=== PATIENT | female | born 1995 | race Asian ===

== ENCOUNTER 2022-05-07 12:20 | Emergency (ER) | payer OTHER ==
[2022-05-07 12:36] VITALS: BP 122/76
--- NOTE | 2022-05-07 14:31 | ED Physician Documentation ---
PD HPI URI - Stated complaint Stated Complaint: FEVER,COUGH - Chief complaint Chief Complaint: Fever - History obtained from History obtained from: Patient - History of Present Illness Timing - onset: How many days ago (3) Timing duration: Days (3) Timing details: Abrupt onset, Still present Associated symptoms: Fever, Chills, Nasal congestion, Swollen nodes, Dry cough. No: NVD Contributing factors: Sick contact (her child initially sick in family, now she is sick as well. got sick a day later than her.) Improves by: No: Medication (tylenol helps with fevers. Not much improvement on cough with OTC meds.) Worsened by: Activity Similar symptoms before: Has not had sx before Recently seen: Not recently seen Review of Systems Constitutional: reports: Fever, Chills Nose: reports: Congestion Throat: reports: Sore throat Respiratory: reports: Cough GI: reports: Nausea. denies: Vomiting, Diarrhea Skin: denies: Rash Neurologic: reports: Generalized weakness, Headache. denies: Altered mental status PD PAST MEDICAL HISTORY - Past Medical History Cardiovascular: None Respiratory: None Endocrine/Autoimmune: None - Present Medications Home Medications: Ambulatory Orders Medication Instructions Recorded Confirmed Benzonatate [Tessalon] 100 mg PO TID PRN #20 cap 05/07/22 Ondansetron Odt [Zofran] 4 mg TL Q6H PRN #10 tablet 05/07/22 - Allergies Allergies/Adverse Reactions: Allergies Allergy/AdvReac Type Severity Reaction Status Date / Time ibuprofen Allergy Itching Verified 05/07/22 12:36 Penicillins Allergy Itching Verified 05/07/22 12:36 PD ED PE NORMAL - Vitals Vital signs reviewed: Yes - General General: Alert and oriented X 3, No acute distress, Well developed/nourished - HEENT HEENT: Ears normal, Moist mucous membranes, Pharynx benign - Neck Neck: Supple, no meningeal sign, No adenopathy - Cardiac Cardiac: RRR, No murmur - Respiratory Respiratory: Clear bilaterally - Derm Derm: Normal color, Warm and dry, No rash - Neuro Neuro: Alert and oriented X 3, No motor deficit, Normal speech Results - Vitals Vitals: Oxygen O2 Source Room air - Labs Labs: Laboratory Tests 05/07/22 12:41 Nasal Adenovirus (PCR) NOT DETECTED Nasal B. parapertussis DNA (PCR) NOT DETECTED Nasal Coronavir 229E PCR NOT DETECTED Nasal Coronavir HKU1 PCR NOT DETECTED Nasal Coronavir NL63 PCR NOT DETECTED Nasal Coronavir OC43 PCR NOT DETECTED Nasal Enterovir/Rhinovir PCR NOT DETECTED Nasal Influenza B PCR NOT DETECTED Nasal Influenza A PCR NOT DETECTED Nasal Parainfluen 1 PCR DETECTED A Nasal Parainfluen 2 PCR NOT DETECTED Nasal Parainfluen 3 PCR NOT DETECTED Nasal Parainfluen 4 PCR NOT DETECTED Nasal RSV (PCR) NOT DETECTED Nasal B.pertussis DNA PCR NOT DETECTED Nasal C.pneumoniae (PCR) NOT DETECTED Randy Human Metapneumo PCR NOT DETECTED Nasal M.pneumoniae (PCR) NOT DETECTED Nasal SARS-CoV-2 (PCR) NOT DETECTED PD MEDICAL DECISION MAKING - ED course Complexity details: reviewed results (parainfluenza. Focus will be on symptoms improvement. ), considered differential, d/w patient Departure - Departure Disposition: 01 Home, Self Care Clinical Impression: Viral upper respiratory infection Condition: Stable Record reviewed to determine appropriate education?: Yes Instructions: ED Upper Resp Infec No Abx Tx Follow-Up: [facility] [Provider Group] Prescriptions: Benzonatate [Tessalon] 100 mg PO TID PRN #20 cap PRN Reason: Cough Ondansetron Odt [Zofran] 4 mg TL Q6H PRN #10 tablet PRN Reason: Nausea / Vomiting Comments: Your viral respiratory PCR panel test was positive for parainfluenza which is a common head and chest cold type illness. There is no particular antiviral for this virus. Main focus of treatment is symptom treatment. Try to stay well-hydrated and continue with Tylenol every 4-6 hours if needed for fevers or pains. You could add ondansetron if needed for nausea. Benzonatate can be used for cough. You could also take just regular cetirizine or such for congestion or phlegm as well. I would anticipate several days more of illness and then improving. Return if worsening. I sent your prescriptions to [facility] pharmacy. Discharge Date/Time: 05/07/22 15:50
[2022-05-07 15:15] LABS: B. PARAPERTUSSIS- RESP PCR PAN NOT DETECTED; B. PERTUSSIS- RESP PCR PANEL NOT DETECTED; C. PNEUMONIAE- RESP PCR PANEL NOT DETECTED; CORONAVIRUS 229E-RESP PCR NOT DETECTED; CORONAVIRUS HKU1-RESP PCR NOT DETECTED; CORONAVIRUS NL63-RESP PCR NOT DETECTED; CORONAVIRUS OC43-RESP PCR NOT DETECTED; HUMAN METAPNEUMOVIRUS NOT DETECTED; INFLUENZA A- RESP PCR PANEL NOT DETECTED; INFLUENZA B - RESP PCR PANEL NOT DETECTED; M. PNEUMONIAE- RESP PCR PANEL NOT DETECTED; PARAINFLUENZA VIRUS 1 DETECTED; PARAINFLUENZA VIRUS 2 NOT DETECTED; PARAINFLUENZA VIRUS 3 NOT DETECTED; PARAINFLUENZA VIRUS 4 NOT DETECTED; RHINOVIRUS/ENTEROVIRUS NOT DETECTED; RSV- RESP PCR PANEL NOT DETECTED; SARS-CoV-2 -RESP PCR PANEL NOT DETECTED
== END 2022-05-07 15:50 | disposition home or self-care (01) ==
LOC: ED 12:20
DX: J06.9 Acute upper respiratory infection, unspecified (principal); Z20.822 Contact with and (suspected) exposure to COVID-19
CPT/HCPCS: 87633; 99283